=== PATIENT | female | born 1980 | race Caucasian/White ===

== ENCOUNTER → 2020-10-03 | Outpatient (CLI) | payer OTHER | LOC: LABNPT 06:50 | PROVIDERS: ATTEND Podiatrist | DX: Z01.812 Encounter for preprocedural laboratory examination (principal); Z20.822 Contact with and (suspected) exposure to COVID-19 | CPT/HCPCS: 87635 ==

== ENCOUNTER → 2021-01-17 | Outpatient (CLI) | payer OTHER ==
--- NOTE | 2021-01-18 11:53 | Diagnostic Imaging Report ---
INDICATION: Routine screening. COMPARISON is made with prior mammogram from 04/06/2006. 2-D and 3-D bilateral screening mammography was performed with CAD. Both breasts are heterogeneously dense, limiting the sensitivity of mammography. Occasional benign calcifications are noted. No mass or malignant-appearing microcalcifications are seen. Axillae are unremarkable. IMPRESSION: BI-RADS Category 2 No mammographic features suspicious for malignancy are identified. ACR BI-RADS Category 2: Benign findings. Result letter will be mailed to the patient. Note: At least 10% of breast cancer is not imaged by mammography. Dictated by: Dictated on workstation # [id number]
== END ==
LOC: RAD 07:39
PROVIDERS: ATTEND Nurse Practitioner Family
DX: Z12.31 Encounter for screening mammogram for malignant neoplasm of breast (principal)
CPT/HCPCS: 77063; 77067

== ENCOUNTER → 2021-03-04 | Outpatient (CLI) | payer OTHER ==
[~2021-03-04] MED LIST: CATHETER FLUSH 10 ML SYR IV PRN; HOLD METFORMIN - RECEIVED CONTRAST 20 ML VIAL IV SCH; IOHEXOL 350 MG/ML 100 ML (OMNIPAQUE 350) VIAL IV ONE; NS 100 ML (IVPB) BAG IV ONE
--- NOTE | 2021-03-04 09:15 | Diagnostic Imaging Report ---
PROCEDURE: CT abdomen and pelvis with contrast. TECHNIQUE: Multiple contiguous axial images were obtained through the abdomen and pelvis after administration of intravenous contrast. Auto Exposure Controls were utilized during the CT exam to meet ALARA standards for radiation dose reduction. All CT scans use one or more of the following dose optimizing techniques: automated exposure control, MA and/or KvP adjustment based on patient size and exam type or iterative reconstruction. INDICATION: Chronic back pain. FINDINGS: There is good opacification of the aorta and abdominal vessels. The vessels appear normal throughout. No evidence for aortic aneurysm or dissection. The lung bases are clear. The liver, gallbladder, and bile duct are normal. The pancreas and spleen are normal. The adrenal glands are not enlarged. The kidneys show no evidence of obstruction or calculi. The stomach and small bowel are not distended. No bowel wall thickening. The colon shows a normal stool and gas pattern. The appendix is normal. No intra-abdominal adenopathy of pathologic size. No free air or free fluid. Sagittal reformatted images show good alignment of the vertebral bodies with no bony abnormalities. There are no pars defects. IMPRESSION: Normal CT abdomen and pelvis with contrast. Dictated by: Dictated on workstation # [id number]
== END ==
LOC: RAD 08:15
PROVIDERS: ATTEND Neurological Surgery
DX: M54.50 Low back pain, unspecified (principal)
CPT/HCPCS: 74177

== ENCOUNTER → 2021-05-03 | Outpatient (CLI) | payer OTHER | LOC: LABNPT 06:54 | PROVIDERS: ATTEND Podiatrist | DX: Z01.812 Encounter for preprocedural laboratory examination (principal); Z20.822 Contact with and (suspected) exposure to COVID-19 | CPT/HCPCS: 87635 ==

== ENCOUNTER → 2021-06-12 | Outpatient (CLI) | payer OTHER ==
--- NOTE | 2021-06-12 08:50 | Diagnostic Imaging Report ---
PROCEDURE: US left lower extremity venous. TECHNIQUE: Multiple real-time grayscale images were obtained over the left lower extremity in various projections. Additional duplex Doppler and color Doppler images were also obtained. INDICATION: DVT with new groin pain. A left common femoral, superficial femoral and popliteal veins are widely patent. There is thrombus in the peroneal vein in the calf. No fluid collection or mass is seen. IMPRESSION: Left large lower extremity peroneal vein thrombosis. Dictated by: Dictated on workstation # [id number]
== END ==
LOC: RAD 07:56
PROVIDERS: ATTEND Family Medicine
DX: I82.452 Acute embolism and thrombosis of left peroneal vein (principal)

== ENCOUNTER → 2022-01-17 | Outpatient (CLI) | payer OTHER ==
--- NOTE | 2022-01-17 10:33 | Diagnostic Imaging Report ---
Ultrasound right breast INDICATION: Right axillary mass. There are no prior breast ultrasound examinations available for comparison. The screening mammogram performed on 01/17/2021 failed to show any evidence for malignancy. Reportedly, the patient has a palpable abnormality in the right axilla. The ultrasound examination in this area fails to show any discrete solid or cystic mass. There is no evidence of an abscess. The entire right breast was examined. There are multiple cysts within the breasts. The largest of these is in the 12 o'clock position approximately 2 cm from nipple. This cyst measures 3.5 x 1.4 x 2.6). There is no solid mass identified. IMPRESSION: 1. There is no abnormality by ultrasound to correspond to the patient's palpable mass in the right axilla. I would recommend that a diagnostic mammogram of the right breast be performed for further evaluation, however. 2. There are several cysts within the breast including a 3.5 cm cyst in the 12 o'clock position. These cysts have a generally benign appearance. There is no solid mass to suggest malignancy. 3. The patient could have her annual screening mammogram of the left breast at the same time as the diagnostic mammogram of the right breast. ACR category 0 ACR BI-RADS Category 0: Incomplete. (Needs additional imaging evaluation). Result letter will be mailed to the patient. Note: At least 10% of breast cancer is not imaged by mammography. Dictated by: Dictated on workstation # [id number]
== END ==
LOC: RAD 09:15
PROVIDERS: ATTEND Family Medicine
DX: N60.01 Solitary cyst of right breast (principal); R22.2 Localized swelling, mass and lump, trunk; R59.0 Localized enlarged lymph nodes
CPT/HCPCS: 76641

== ENCOUNTER → 2022-02-21 | Outpatient (CLI) | payer OTHER ==
--- NOTE | 2022-02-21 13:28 | Diagnostic Imaging Report ---
INDICATION: Right breast cyst noted on prior ultrasound in January. Patient also has a palpable lump in the right axilla with no underlying abnormality noted sonographically. COMPARISON: Correlation is made with the prior mammogram from 01/17/2021. TECHNIQUE: 2D and 3D bilateral diagnostic mammography was performed with CAD. FINDINGS: Both breasts are heterogeneously dense, limiting the sensitivity of mammography. A circumscribed mass in the upper right breast at mid depth is noted corresponding with the large cyst noted sonographically. No spiculated mass is identified. No suspicious microcalcifications are seen. No suspicious abnormality in the axillae is identified. IMPRESSION: No mammographic features suspicious for malignancy are identified. ACR BI-RADS Category 2: Benign findings. Result letter will be mailed to the patient. Note: At least 10% of breast cancer is not imaged by mammography. Dictated by: Dictated on workstation # [id number]
== END ==
LOC: RAD 12:14
PROVIDERS: ATTEND Family Medicine
DX: N60.01 Solitary cyst of right breast (principal)
CPT/HCPCS: 77062; 77066

== ENCOUNTER → 2022-03-18 | Outpatient (CLI) | payer OTHER ==
--- NOTE | 2022-03-18 14:59 | Diagnostic Imaging Report ---
INDICATION: 41-year-old asymptomatic postmenopausal female. COMPARISON: None available. FINDINGS: AP Spine L1-L4: [BMD (g/cm2): 1.059] [T-Score: -1.2] [Z-Score: -1.9] [BMD Previous: NA] [BMD % Change: NA] LT Hip Neck: [BMD (g/cm2): 0.961] [T-Score: -0.6] [Z-Score: -0.5] LT Hip Total: [BMD (g/cm2):0.985] [T-Score:-0.2] [Z-Score: -0.4] [BMD Previous: 0.964] [BMD % Change: -0.5] RT Hip Neck: [BMD (g/cm2):0.964] [T-Score:-0.5] [Z-Score:-0.5] RT Hip Total: [BMD (g/cm2):1.003] [T-score:0.0] [Z-Score:-0.3] [BMD Previous:NA] [BMD % Change:NA] *Indicates significant change from prior examination based on 95% confidence level. World Health Organization criteria for BMD interpretation classify patients as Normal (T-score at or above -1.0), Osteopenic (T-score between -1.0 and -2.5) or Osteoporotic (T-score at or below -2.5). LIMITATIONS AND MODIFICATION: None. FRACTURE RISK (FRAX SCORE): The ten year probability of (%): Major Osteoporotic Fracture: [1.9] Hip Fracture: [0.1] IMPRESSION: 1. Osteopenia (Low bone mass). 2. Baseline examination. 3. See below National Osteoporosis Foundation guidelines on when to potentially initiate pharmacologic therapy. Based on the National Osteoporosis Foundation Guidelines, pharmacologic treatment should be initiated in any of the following, unless clinical conditions suggest otherwise: * Any patient with prior fragility fracture of the hip or vertebrae. A spine fracture indicates 5X risk for subsequent spine fracture and 2X risk for subsequent hip fracture. * Osteoporosis (T-score <-2.5). * Postmenopausal women and men age 50 and older with low bone mass/osteopenia (T-score between -1.0 and -2.5) by DXA and 10-year major osteoporotic fracture greater than 20% or a 10-year probability of hip fracture greater than 3%. These fracture risks are supplied above in the FRAX score, if applicable. * Clinician judgement and/or patient preferences may indicate treatment for people with 10-year fracture probabilities above or below these levels. Dictated by: Dictated on workstation # [id number]
== END ==
LOC: RAD 08:21
PROVIDERS: ATTEND Family Medicine
DX: M85.89 Other specified disorders of bone density and structure, multiple sites (principal); Z78.0 Asymptomatic menopausal state
CPT/HCPCS: 77080

== ENCOUNTER → 2023-03-23 | Outpatient (CLI) | payer OTHER ==
--- NOTE | 2023-03-23 10:18 | Diagnostic Imaging Report ---
INDICATION: Routine screening. Comparison is made with prior mammogram from 02/21/2022 and 01/17/2021. 2-D and 3-D bilateral screening mammography was performed with CAD. Both breasts are heterogeneously dense, limiting the sensitivity of mammography. A circumscribed mass in the retroareolar right breast appears increased in size consistent with an enlarging cyst. No new mass or malignant-appearing microcalcifications are identified. The axillae are unremarkable. IMPRESSION: Enlarging cyst retroareolar right breast. The study is otherwise unremarkable. ACR BI-RADS Category 2: Benign findings. Result letter will be mailed to the patient. Note: At least 10% of breast cancer is not imaged by mammography. BI-RADS Category 2 Dictated by: Dictated on workstation # [id number]
== END ==
LOC: RAD 09:25
PROVIDERS: ATTEND Family Medicine
DX: Z12.31 Encounter for screening mammogram for malignant neoplasm of breast (principal); N60.01 Solitary cyst of right breast
CPT/HCPCS: 77063; 77067